=== PATIENT | male | born 1990 | race Caucasian/White ===

== ENCOUNTER 2020-01-13 18:44 | Emergency (ER) | payer MEDICAID, SELFPAY ==
[2020-01-13 19:10] VITALS: BP 136/87; PULSE 66; RESP 20; TEMP 36.7; O2SAT 99; BMI 32.4
[2020-01-13 19:17] LABS: UTC Strep Screen (Rapid) Negative (Negative)
--- NOTE | 2020-01-13 19:28 | HMH.EDUTC ---
[facility] [place] Clinical Impression: URI (upper respiratory infection) Qualifiers: URI type: unspecified URI Qualified Code(s): J06.9 - Acute upper respiratory infection, unspecified Disposition: Home, Self-Care Condition on Discharge: Good Instructions: Sore Throat, DI for Sinusitis, Sinusitis, Preventing the Spread of Coronavirus Discharge Instructions Additional Instructions: You was given handout to go home and self Quarantine until your [id number] test results are back and are negative Make sure to follow instructions on the handout *Take medication as prescribed Follow up with Family Doctor if no improvement or any worsening of symptoms Return if needed Straight to ER if any life threatening symptoms Call back to the [facility] on Mon to see if your COVID test is back and for the results No work until negative test Prescriptions: Albuterol Sulfate [Proventil-HFA 90mcg/puff Inh] 1 - 2 puffs IH Q4HP PRN #1 inh PRN Reason: Shortness Of Breath Transmission Status: Pending to [facility] Fluticasone Propionate [Flonase 50mcg nasal spray 16gm] 1 - 2 spr NS DAILY #1 bottle Transmission Status: Pending to [facility] Azithromycin [Z-Martin 250mg Tab] 250 mg PO DIRECTED #6 tab Transmission Status: Pending to [facility] Referrals: PCP,No [Primary Care Provider] - As needed Forms: Work/School Release Time of Disposition: 19:39 Medical Decision Making - Akbar Inquiry Pt receiving controlled substance: No Akbar was queried for this patient: No Vital Signs: 01/13/20 19:10 Temperature 98.1 F Temperature Source Oral Pulse Rate [Left Brachial] 66 Respiratory Rate 20 Blood Pressure [Left Arm] 136/87 Blood Pressure Mean [Left Arm] 103 Blood Pressure Source [Left Arm] Automatic Cuff Blood Pressure Position [Left Arm] Sitting 02 Sat by Pulse Oximetry 99 Oxygen Delivery Method Room Air - Lab Data Lab results reviewed: Yes: I reviewed the patient's lab results. Lab Results 01/13/20 19:06: Strep Scn Rapid Clinic Negative Orders (Tests/Meds): ORDERS Category Date Time Status SARS-CoV-2, JOSUE Stat Lab 01/13/20 19:10 Received Strep Screen Confirmation Stat Micro 01/13/20 19:06 Received [facility] [place]PI - General Stated complaint: cough,sore throat Time Seen by Provider: 01/13/20 19:28 Mode of Arrival: Ambulatory Source of Information: Patient Limitations: No Limitations Description of Symptoms (Recalled from Triage Doc. by RN): PATIENT C/O COUGH, SORE THROAT, AND PLEURITIC PAIN X 3 DAYS. STATES COUGH HAS BEEN BOTH PRODUCTIVE AND DRY. DENIES FEVER. STATES 2-3 PEOPLE WHO WORKS IN THE SAME FACILITY HAS TESTED POSITIVE FOR COVID HEENT Symptoms (Recalled from RN notes): Yes Resp Symptoms (Recalled from RN notes): Yes Skin Symptoms (Recalled from RN notes): No MS Symptoms (Recalled from RN notes): Yes Functional Status (Recalled from RN notes): WNL - History of Present Illness Provider Complaint: Patient states that he is an everyday smoker and has been having cough, sore throat, and headache for several days States that at times it hurts when he coughs States that at times he can cough up some mucous and at times it is dry Denies known fever, States that a few people at his work has tested positive for COVID but he hasnt been around them States that cough at times is worse when he lays down - Related Data Previous Rx's Medication Instructions Recorded Albuterol Sulfate [Proventil-HFA 1 - 2 puffs IH Q4HP PRN #1 inh 01/13/20 90mcg/puff Inh] Azithromycin [Z-Martin 250mg Tab] 250 mg PO DIRECTED #6 tab 01/13/20 Fluticasone Propionate [Flonase 1 - 2 spr NS DAILY #1 bottle 01/13/20 50mcg nasal spray 16gm] Allergies Allergy/AdvReac Type Severity Reaction Status Date / Time Penicillins [PENICILLINS] Allergy Unknown SWELLING Verified 09/18/18 17:40 THROAT - Worker's Comp Is this a Worker's Comp case?: No [facility] History - Hepatitis A Screen Drug us
[2020-01-13 19:42] VITALS: BP 136/87; PULSE 66; RESP 20; TEMP 36.7; O2SAT 99
[2020-01-15 15:13] LABS: Covid-19 Nasal PCR Sendout Lex NOT DETECTED
== END 2020-01-13 19:43 | disposition home or self-care (01) ==
PROVIDERS: Emergency Provider Nurse Practitioner
DX: Z20.828 Contact with and (suspected) exposure to other viral communicable diseases (principal); J06.9 Acute upper respiratory infection, unspecified; F17.210 Nicotine dependence, cigarettes, uncomplicated
CPT/HCPCS: 87880; 99202; U0004

== ENCOUNTER → 2020-04-22 14:54 | Outpatient (CLI) | payer MEDICAID, SELFPAY ==
[2020-04-22 15:25] LABS: Eosinophils # 0.1 K/mm3 (0.0-0.4); Red Cell Distribution Width 12.9 % (11.5-17.5)
[2020-04-22 15:30] LABS: Basophils % 0.3 % (0.1-2.0); Eosinophils % 2.1 % (0.1-12.0); Hematocrit 54.6 % (42.0-52.0); Lymphocytes # 1.8 K/mm3 (0.7-4.5); Lymphocytes % 29.6 % (10-50); Mean Corpuscular HGB Conc 32.9 g/dL (31.8-35.4); Mean Corpuscular Hemoglobin 31.1 pg (27.0-31.2); Mean Corpuscular Volume 94.4 fl (80-94); Mean Platelet Volume 7.5 fl (7.4-10.4); Monocytes # 0.4 K/mm3 (0.1-1.0); Monocytes % 6.3 % (1.7-9.3); Neutrophils # 3.7 K/mm3 (1.8-7.8); Neutrophils % 61.6 % (37.0-80.0); Platelet Count 300 K/mm3 (142-424); Red Blood Count 5.79 M/mm3 (4.60-6.20)
[2020-04-22 15:44] LABS: Hemoglobin A1C 5.6 % (4.0-6.0)
[2020-04-22 15:53] LABS: Alanine Aminotransferase 22 U/L (12-78); Albumin/Globulin Ratio 1.7 (1.1-1.8); Alkaline Phosphatase 103 U/L (38-126); Anion Gap 11.2 mEq/L (5-15); Aspartate Amino Transferase 25 U/L (17-59); Bilirubin,Total 0.5 mg/dl (0.2-1.3); Blood Urea Nitrogen 5 mg/dl (9-20); Calcium 9.5 mg/dl (8.4-10.2); Carbon Dioxide 30 mmol/L (22.0-30.0); Chloride 105 mmol/L (98-107); Chol/HDL Ratio 4.5 (1-3.5); Cholesterol 153 mg/dl (140-200); Estimated Glomerular Filt Rate 112 ml/min (>60); GFR (African American) 136 ML/MIN (>60); Globulin 2.4 g/dL (1.3-3.2); Glucose 83 mg/dl (74-100); HDL Cholesterol 34 mg/dl (40-60); Potassium 5.2 mmoL/L (3.5-5.1); Sodium 141 mmol/L (136-145); Total Protein,Serum 6.4 g/dl (6.3-8.2); Triglycerides 127 mg/dl (30-150); VLDL Cholesterol 25 mg/dL (0-40)
[2020-04-22 16:04] LABS: Direct LDL Cholesterol 97.07 mg/dL (100-129)
[2020-04-22 16:10] LABS: T4 (Thyroxine) 8.9 ug/dl (5.53-11.0)
== END ==
PROVIDERS: Visit Provider Nurse Practitioner Family
DX: R42 Dizziness and giddiness (principal); R05 Cough; R53.83 Other fatigue; Z76.89 Persons encountering health services in other specified circumstances
CPT/HCPCS: 80053; 80061; 83036; 84436; 84443; 85025

== ENCOUNTER → 2020-04-29 18:14 | Outpatient (CLI) | payer MEDICAID, SELFPAY ==
[2020-04-29 19:50] LABS: Anion Gap 11.5 mEq/L (5-15); Blood Urea Nitrogen 5 mg/dl (9-20); Calcium 9.3 mg/dl (8.4-10.2); Carbon Dioxide 30 mmol/L (22.0-30.0); Chloride 103 mmol/L (98-107); Estimated Glomerular Filt Rate 112 ml/min (>60); GFR (African American) 136 ML/MIN (>60); Glucose 85 mg/dl (74-100); Potassium 4.5 mmoL/L (3.5-5.1); Sodium 140 mmol/L (136-145)
== END ==
PROVIDERS: Visit Provider Nurse Practitioner Family
DX: E87.5 Hyperkalemia (principal)
CPT/HCPCS: 80048

== ENCOUNTER 2020-06-01 20:46 | Emergency (ER) | payer SELFPAY ==
[2020-06-01 21:15] VITALS: BP 142/91; PULSE 86; RESP 19; TEMP 36.8; O2SAT 100; BMI 32.1
[2020-06-01 21:21] VITALS: BP 154/80; PULSE 75; RESP 19; TEMP 36.8; O2SAT 99
--- NOTE | 2020-06-01 21:21 | HMH.EDUTC ---
[facility] [place] Disposition Clinical Impression: Otitis media Qualifiers: Otitis media type: unspecified Laterality: right Qualified Code(s): H66.91 - Otitis media, unspecified, right ear Disposition: Home, Self-Care Condition on Discharge: Good Instructions: Middle Ear Infection, Middle Ear Infections (Alternative Therapy), Azithromycin, Sore Throat Additional Instructions: *Monitor Temp, Over the counter Motrin or Tylenol as directed/as needed Tylenol every 4 hours and Motrin every 6 hours (as long as your family doctor has told you that you can take it) for fever or pain. and straight to ER if unable to lower temp less than 101.0 after medication given *Warm salt water gargles may help to soothe the throat *Throat Lozenges *Warm fluids like tea with honey may help to soothe the throat *Sleep elevated *Humidifier/Vaporizer Your throat swab was sent for culture. Those results are typically sent to your primary care. Be sure to follow up in 2-3 days with your family doctor/primary care physician if no improvement so they can review those result and treat if necessary. If you don?t have a primary care doctor, I recommend you get one but in the mean time, you will have to return to a walk in clinic Follow up IMMEDIATELY for new or worsening symptoms or no Noticeable improvement over the next 48-72 hours. 911 for difficulty breathing or swallowing You were tested for today for COVID19 your test result should be back in the next 24-48 hours, you may call to the [facility] to see if your test results are back in the next 48 hours [phone] [facility] hours are 9am-9pm You was given a handout with instructions for Self Quarantine and Self isolation for while you wait on test results and what to do if they are positive If you are positive the Health Dept will be contacting you also Prescriptions: Azithromycin [Z-Martin 250mg Tab] 250 mg PO DIRECTED #6 tab Transmission Status: Pending to [facility] Referrals: Joey Patel APRN [Primary Care Provider] - As needed Forms: Work/School Release Time of Disposition: 21:26 Medical Decision Making - Akbar Inquiry Pt receiving controlled substance: No Akbar was queried for this patient: No Vital Signs: 06/01/20 21:15 Temperature 98.3 F Temperature Source Oral Pulse Rate [Left] 86 Respiratory Rate 19 Blood Pressure [Right Arm] 142/91 H Blood Pressure Mean [Right Arm] 108 Blood Pressure Source [Right Arm] Automatic Cuff Blood Pressure Position [Right Arm] Sitting 02 Sat by Pulse Oximetry 100 Oxygen Delivery Method Room Air - Lab Data Lab results reviewed: Yes: I reviewed the patient's lab results. Orders (Tests/Meds): ORDERS Category Date Time Status Covid-19 Nasal PCR Sendout Charlie Stat Lab 06/01/20 21:08 Received [facility] [place] HPI - General Stated complaint: FEVER,COUGH Time Seen by Provider: 06/01/20 21:21 Mode of Arrival: Ambulatory Source of Information: Patient Limitations: No Limitations Description of Symptoms (Recalled from Triage Doc. by RN): Covid test- exposed fatigue, cough, headache HEENT Symptoms (Recalled from RN notes): Yes Resp Symptoms (Recalled from RN notes): Yes Skin Symptoms (Recalled from RN notes): No MS Symptoms (Recalled from RN notes): No Functional Status (Recalled from RN notes): wnl - History of Present Illness Provider Complaint: Patient states that he was around someone several weeks ago that tested postive for COVID State that he hasnt felt well on and off for several days having ear pain, sore throat, body aches and fatigue States that he wasnt sure if he may have COVID or have strep throat - Related Data Previous Rx's Medication Instructions Recorded cephalexin 500 mg capsule 500 mg PO Q12H 10 Days #20 cap 04/22/20 Azithromycin [Z-Martin 250mg Tab] 250 mg PO DIRECTED #6 tab 06/01/20 Allergies Allergy/AdvReac Type Severity Reaction Status Date / Time Penicillins [PENICILLINS] Allergy Unknown SWELLING Verified 03/27
[2020-06-01 21:26] LABS: UTC Strep Screen (Rapid) Negative (Negative)
[2020-06-03 14:20] LABS: Covid-19 Nasal PCR Sendout Lex Not Detected
== END 2020-06-01 21:29 | disposition home or self-care (01) ==
PROVIDERS: Emergency Provider Nurse Practitioner; PCP Nurse Practitioner Family
DX: Z20.828 Contact with and (suspected) exposure to other viral communicable diseases (principal); H66.91 Otitis media, unspecified, right ear
CPT/HCPCS: 87880; 99201; U0004

== ENCOUNTER 2020-10-15 20:07 | Emergency (ER) | payer SELFPAY ==
[2020-10-15 20:07] VITALS: BP 144/81; PULSE 74; RESP 18; TEMP 36.8; O2SAT 97; BMI 30.8
--- NOTE | 2020-10-15 20:12 | XR_ITS ---
PROCEDURE: XR SHOULDER RT MIN 2V CLINICAL INDICATION: FELT POP WHILE PUTTING IN A CAR SEAT COMPARISON: CR SHOULDCMLT XR shoulder LT min 2V from 10/14/2018 FINDINGS: No fracture or dislocation. No lytic or blastic change. There is normal mineralization. The joint spaces are well-preserved. No significant degenerative/arthritic changes. No erosive changes evident. Other findings:None. IMPRESSION: No acute findings. Dictated by: Jameson Cabrera MD 10/16/2020 06:03 Jameson Cabrera MD in [place] 10/16/2020 06:03
--- NOTE | 2020-10-15 20:35 | HMH.EDUTC ---
[facility] [place]ression: Right shoulder strain Qualifiers: Encounter type: initial encounter Qualified Code(s): S46.911A - Strain of unspecified muscle, fascia and tendon at shoulder and upper arm level, right arm, initial encounter Disposition: Home, Self-Care Condition on Discharge: Good Instructions: DI for Shoulder Pain, Muscle Strain, Methocarbamol, Ibuprofen Additional Instructions: *Ibuprofen faheem 6 hours with meal as needed for pain/inflammation *Not additional anti-inflammatory like motrin, aleve, advil with the above amount of ibuprofen. You can still take Tylenol every 4 hours as needed if you need something else for pain *Ice 20 minutes every 2 hours for the first 48 hours after the initial injury followed by moist heat every 20 minutes 3-4 times a day to affected area *Muscle relaxer as prescribed as needed for muscle spasms but remember, it WILL cause drowsiness You cannot take it and drive, operate machinery or care for small children. *Keep this area active, no movement leads to more stiffness, However take it easy and avoid heavy lifting pushing or pulling *Follow up with you family doctor if no improvement for further treatment Call back tomorrow to the [facility] for the official reading of your xray Prescriptions: Ibuprofen [Ibuprofen 800mg Tablet] 800 mg PO Q8HP PRN #20 tab PRN Reason: Moderate Pain Transmission Status: [facility] methocarbamoL [Methocarbamol 500mg Tablet] 500 mg PO BID PRN #15 tab PRN Reason: Muscle Spasm Transmission Status: [facility] Referrals: Jonah Sanchez MD [Primary Care Provider] - As needed Forms: Work/School Release Time of Disposition: 21:11 Medical Decision Making - Akbar Inquiry Pt receiving controlled substance: No Akbar was queried for this patient: No Vital Signs: 10/15/20 20:07 Temperature 98.3 F Temperature Source Oral Pulse Rate [Right] 74 Respiratory Rate 18 Blood Pressure [Right Arm] 144/81 H Blood Pressure Mean [Right Arm] 102 02 Sat by Pulse Oximetry 97 Orders (Tests/Meds): ORDERS Category Date Time Status XR shoulder RT min 2V Stat Exams 10/15/20 20:12 Ordered - Radiology Data #1 Image(s): Shoulder Image Reviewed: Yes I reviewed the patient's radiology image Preliminary Findings: No Fracture Seen Medical Decision Narrative: Patient state that he took Ibuprofen around 6pm for pain [facility] [place] - General Stated complaint: R shoulder pain Time Seen by Provider: 10/15/20 20:35 Mode of Arrival: Family Vehicle Source of Information: Patient Limitations: No Limitations Description of Symptoms (Recalled from Triage Doc. by RN): PATIENT C/O RIGHT SHOULDER PAIN AFTER PULLING ON A SEAT BELT. PT STATED, I FELT MY SHOULDER POP AND IT STARTED BURNING. PT HAS DECREASED ROM UPON ASSESSMENT. HEENT Symptoms (Recalled from RN notes): No Resp Symptoms (Recalled from RN notes): No Skin Symptoms (Recalled from RN notes): No MS Symptoms (Recalled from RN notes): Yes Functional Status (Recalled from RN notes): NA - History of Present Illness Provider Complaint: Patient states that he was pulling on seat belt and felt a pop in his right shoulder area State that ever since he has been having a burning like pain in his muscle in his right shoulder area States that pain is worse when he tries to raise his arm States that he is able to move fingers easily and denies numbness or tingling - Related Data Previous Rx's Medication Instructions Recorded cephalexin 500 mg capsule 500 mg PO Q12H 10 Days #20 cap 04/22/20 Azithromycin [Z-Martin 250mg Tab] 250 mg PO DIRECTED #6 tab 06/01/20 Ibuprofen [Ibuprofen 800mg 800 mg PO Q8HP PRN #20 tab 10/15/20 Tablet] methocarbamoL [Methocarbamol 500mg 500 mg PO BID PRN #15 tab 10/15/20 Tablet] Allergies Allergy/AdvReac Type Severity Reaction Status Date / Time Penicillins [PENICILLINS] Allergy Unknown SWELLING Verified 04/22/20 10:
[2020-10-15 21:16] VITALS: BP 134/71; PULSE 71; RESP 16; TEMP 36.8; O2SAT 99
== END 2020-10-15 21:15 | disposition home or self-care (01) ==
PROVIDERS: Emergency Provider Nurse Practitioner; PCP Emergency Medicine
DX: S46.911A Strain of unspecified muscle, fascia and tendon at shoulder and upper arm level, right arm, initial encounter (principal); X50.0XXA Overexertion from strenuous movement or load, initial encounter; G43.709 Chronic migraine without aura, not intractable, without status migrainosus; F17.290 Nicotine dependence, other tobacco product, uncomplicated
CPT/HCPCS: 73030; 99202; G0463

== ENCOUNTER 2020-12-15 19:02 | Emergency (ER) | payer SELFPAY ==
[2020-12-15 19:05] VITALS: BP 148/84; PULSE 76; RESP 19; TEMP 37.2; O2SAT 98; BMI 39.4
[2020-12-15 19:43] VITALS: BP 148/84; PULSE 76; RESP 19; TEMP 37.2; O2SAT 98
[2020-12-15 19:44] LABS: UTC Influenza A Antigen Negative (Negative); UTC Influenza B Antigen Negative (Negative)
--- NOTE | 2020-12-15 19:47 | HMH.EDUTC ---
[facility] [place] Clinical Impression: Otitis media Qualifiers: Otitis media type: unspecified Laterality: left Qualified Code(s): H66.92 - Otitis media, unspecified, left ear Disposition: Home, Self-Care Condition on Discharge: Good Instructions: Sore Throat, DI for Fever (Symptom) -- Adult, Middle Ear Infection, Azithromycin Additional Instructions: *Monitor Temp, Over the counter Motrin or Tylenol as directed/as needed Tylenol every 4 hours and Motrin every 6 hours (as long as your family doctor has told you that you can take it) for fever or pain. and straight to ER if unable to lower temp less than 101.0 after medication given *Warm salt water gargles may help to soothe the throat *Throat Lozenges *Warm fluids like tea with honey may help to soothe the throat *Sleep elevated *Humidifier/Vaporizer Your throat swab was sent for culture. Those results are typically sent to your primary care. Be sure to follow up in 2-3 days with your family doctor/primary care physician if no improvement so they can review those result and treat if necessary. If you don?t have a primary care doctor, I recommend you get one but in the mean time, you will have to return to a walk in clinic Follow up IMMEDIATELY for new or worsening symptoms or no Noticeable improvement over the next 48-72 hours. 911 for difficulty breathing or swallowing You were tested for today for COVID19 your test result should be back in the next 24-48 hours, you may call to the [facility] to see if your test results are back in the next 48 hours [phone] [facility] hours are 9am-9pm You was given a handout with instructions for Self Quarantine and Self isolation for while you wait on test results and what to do if they are positive If you are positive the Health Dept will be contacting you also Prescriptions: Azithromycin [Z-Martin 250mg Tab] 250 mg PO DIRECTED #6 tab Transmission Status: Pending to [facility] Referrals: Jonah Sanchez MD [Primary Care Provider] - As needed Forms: Work/School Release Time of Disposition: 19:53 Medical Decision Making - Akbar Inquiry Pt receiving controlled substance: No Akbar was queried for this patient: No Vital Signs: 12/15/20 19:05 12/15/20 19:43 Temperature 99.0 F 99.0 F Temperature Source Oral Pulse Rate 76 Pulse Rate [Right Brachial] 76 Respiratory Rate 19 19 Blood Pressure 148/84 H Blood Pressure [Right Arm] 148/84 H Blood Pressure Mean [Right Arm] 105 Blood Pressure Source [Right Arm] Automatic Cuff Blood Pressure Position [Right Arm] Sitting 02 Sat by Pulse Oximetry 98 Oxygen Delivery Method Room Air - Lab Data Lab results reviewed: Yes: I reviewed the patient's lab results. Lab Results 12/15/20 19:28: Influenza Type A Ag Negative, Influenza Type B Ag Negative Orders (Tests/Meds): ORDERS Category Date Time Status Covid-19 Nasal PCR ([facility]) Routine Lab 12/15/20 19:34 Received [facility] [place] - General Stated complaint: sore throat,cough, body pain Time Seen by Provider: 12/15/20 19:49 Mode of Arrival: Ambulatory Source of Information: Patient Limitations: No Limitations Description of Symptoms (Recalled from Triage Doc. by RN): PATIENT C/O FEVER, BODY ACHES, CHILLS, CONGESTION, SORE THROAT AND HEADACHE X 3 DAYS HEENT Symptoms (Recalled from RN notes): Yes Resp Symptoms (Recalled from RN notes): No Skin Symptoms (Recalled from RN notes): No MS Symptoms (Recalled from RN notes): No Functional Status (Recalled from RN notes): WNL - History of Present Illness Provider Complaint: Patient states that he has not felt well for several days State that he has been having pain in his left ear, sore throat, body aches, chills headache nasal congestion and fever States that today he was feeling worse so he came in to get checked - Related Data Previous Rx's Medication Instructions Recorded Azithromycin [Z-Martin 250mg Tab] 250 mg PO DIRECTED #6 tab 12/15/20 Allerg
[2020-12-15 21:12] LABS: UTC Strep Screen (Rapid) Negative (Negative)
== END 2020-12-15 19:59 | disposition home or self-care (01) ==
PROVIDERS: Emergency Provider Nurse Practitioner; PCP Emergency Medicine
DX: H66.92 Otitis media, unspecified, left ear (principal)
CPT/HCPCS: 87804; 87880; 99202; G0463; U0003

== ENCOUNTER 2021-01-31 19:38 | Emergency (ER) | payer SELFPAY ==
[2021-01-31 20:30] VITALS: BP 133/89; PULSE 80; RESP 21; TEMP 36.8; O2SAT 98; BMI 32.1
--- NOTE | 2021-01-31 21:01 | HMH.EDUTC ---
[facility] [place] Clinical Impression: Muscle spasm Disposition: Home, Self-Care Condition on Discharge: Good Instructions: DI for Muscle Spasm Additional Instructions: rest Ice with cold pack for 20 minutes remove may repeat for comfort every hour Ibuprofen every 6 hours as needed for pain or inflammation. If needs something more you can take Tylenol every 4 hours as needed as long as her primary care has told he was okayed for you to take both. If improving any do not need to follow-up you can bring begin exercising 2-3 weeks after injury. Follow-up immediately if new or worsening symptoms or no noticeable improvement over the next 3-5 days. call pcp Referrals: Jonah Sanchez MD [Primary Care Provider] - Time of Disposition: 21:09 Medical Decision Making - Akbar Inquiry Pt receiving controlled substance: No [facility] [place] HPI - General Chief complaint: Urgent [facility] Stated complaint: possible pulled shoulder muscle Time Seen by Provider: 01/31/21 21:01 Mode of Arrival: Ambulatory Source of Information: Patient Limitations: No Limitations - History of Present Illness Provider Complaint: 31 yr old male presnets for left shoulder pain. pt states no injury just woke up with stiffness 3 days ago and becoming worse - Related Data Previous Rx's Medication Instructions Recorded Azithromycin [Z-Martin 250mg Tab] 250 mg PO DIRECTED #6 tab 12/15/20 Allergies Allergy/AdvReac Type Severity Reaction Status Date / Time Penicillins [PENICILLINS] Allergy Unknown SWELLING Verified 04/22/20 10:43 THROAT [facility] History - Hepatitis A Screen Attestation statement:: This patient has been screened for Hepatitis A risk factors. I have reviewed the patient's past medical history: Yes 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: Reports:: Migraine Denies:: Diabetes Mellitus Type 1, Diabetes Mellitus Type 2, Hypertension Other Surgeries: Yes: Cholecystectomy, Other (cholecystectomy) - Social History Smoking Status: Current every day smoker Tobacco Type: cigarettes # Packs/Day (cigarettes): 1 Alcohol Intake: never Alcohol Intake Frequency:: 3 or more drinks per day Occupational Status: other Housing: house Household Members: significant other ROS Obtained: Yes Systems reviewed as appropriate & no additional complaints - Constitutional Constitutional: Reports system reviewed and no additional complaints, except as docu, Denies fever(s) - Eyes Eyes: Reports system reviewed and no additional complaints, except as docu, Denies blurry vision - ENT Ears, Nose, Mouth, and Throat: Reports system reviewed and no additional complaints, except as docu, Denies sore throat - Cardiovascular Cardiovascular: Reports system reviewed and no additional complaints, except as docu, Denies chest pain - Respiratory Respiratory: Reports system reviewed and no additional complaints, except as docu, Denies change in phlegm color - Gastrointestinal Gastrointestingal: Reports: system reviewed and no additional complaints, except as docu. Denies: belching - Genitourinary Female Genitourinary: Reports system reviewed and no additional complaints, except as docu, Denies urinary hesitancy - Musculoskeletal Musculoskeletal: Reports system reviewed and no additional complaints, except as docu, Reports as per HPI, Reports joint pain, Reports limited range of motion - Integumentary/Breasts Skin/Breast: Reports system reviewed and no additional complaints, except as docu, Denies rash - Neurologic Neurologic: Reports system reviewed and no additional complaints, except as docu, Denies dizziness - Endocrine Endocrine: Reports system reviewed and no additional complaints, except as docu, Denies fatigue - Hematologic/Lymphatic Henatologic/Lymphatic: Reports system reviewed and no additional complaints, except as docu, Denies lymphadenopathy - Allergic/Immunologic Allergic/Immunologic: Reports system reviewed and no additional complaints, except a
[2021-01-31 21:12] VITALS: BP 133/89; PULSE 80; RESP 21; TEMP 36.8; O2SAT 98
== END 2021-01-31 21:15 | disposition home or self-care (01) ==
PROVIDERS: Emergency Provider Nurse Practitioner Family; PCP Emergency Medicine
DX: M62.838 Other muscle spasm (principal); M25.511 Pain in right shoulder; F17.210 Nicotine dependence, cigarettes, uncomplicated
CPT/HCPCS: 96372; 99202; G0463

== ENCOUNTER 2021-02-13 12:22 | Emergency (ER) | payer OTHER, SELFPAY ==
[2021-02-13 12:30] VITALS: BP 147/96; PULSE 112; RESP 22; TEMP 39.2; O2SAT 98; BMI 35.9
--- NOTE | 2021-02-13 13:00 | HMH.EDUTC ---
[facility] [place] Disposition Clinical Impression: Viral syndrome, Encounter for laboratory testing for COVID-19 virus Disposition: Home, Self-Care Condition on Discharge: Good Instructions: DI for COVID-19 (Suspected or Confirmed ), Coronavirus Disease 2019, Preventing the Spread of Coronavirus Discharge Instructions Additional Instructions: *Monitor Temp, Over the counter Motrin or Tylenol as directed/as needed Tylenol every 4 hours and Motrin every 6 hours (as long as your family doctor has told you that you can take it) for fever or pain. and straight to ER if unable to lower temp less than 101.0 after medication given *Warm salt water gargles may help to soothe the throat *Throat Lozenges *Warm fluids like tea with honey may help to soothe the throat *Sleep elevated *Humidifier/Vaporizer Follow up IMMEDIATELY for new or worsening symptoms or no Noticeable improvement over the next 48-72 hours. 911 for difficulty breathing or swallowing Robitussin may help with cough You were tested for today for COVID19 your test result should be back in the next 24-48 hours, you may call to the [facility] to see if your test results are back in the next 48 hours [phone] [facility] hours are 9am-9pm You was given a handout with instructions for Self Quarantine and Self isolation for while you wait on test results and what to do if they are positive If you are positive the Health Dept will be contacting you also Make sure to take your Vitamins Vit. C Vit D and Zinc if you can take them Referrals: Jonah Sanchez MD [Primary Care Provider] - As needed Forms: Work/School Release Time of Disposition: 13:46 Medical Decision Making - Akbar Inquiry Pt receiving controlled substance: No Akbar was queried for this patient: No Vital Signs: 02/13/21 12:30 Temperature 102.6 F H Temperature Source Oral Pulse Rate [Right Brachial] 112 H Respiratory Rate 22 Blood Pressure [Right Arm] 147/96 H Blood Pressure Mean [Right Arm] 113 Blood Pressure Source [Right Arm] Automatic Cuff Blood Pressure Position [Right Arm] Sitting 02 Sat by Pulse Oximetry 98 Oxygen Delivery Method Room Air Orders (Tests/Meds): ED MEDICATIONS Discontinued Medications Generic Name Dose Route Start Last Admin Trade Name Freq PRN Reason Stop Dose Admin Acetaminophen 650 mg 02/13/21 13:02 02/13/21 13:10 Acetaminophen 325mg Tab PO 02/13/21 13:03 650 mg ONCE ONE Administration Ibuprofen 800 mg 02/13/21 13:02 02/13/21 13:06 Ibuprofen 200mg/10ml Susp Udc PO 02/13/21 13:03 Not Given ONCE ONE Ibuprofen 800 mg 02/13/21 13:05 02/13/21 13:10 Ibuprofen 400 Mg Tablet PO 02/13/21 13:06 800 mg ONCE ONE Administration ORDERS Category Date Time Status Covid-19 Nasal PCR ([facility]) Routine Lab 02/13/21 12:36 Received [facility] [place] HPI - General Stated complaint: covid test Time Seen by Provider: 02/13/21 13:00 Mode of Arrival: Ambulatory Source of Information: Patient Limitations: No Limitations Description of Symptoms (Recalled from Triage Doc. by RN): PATIENT C/O FEVER, HEADACHE, CONGESTION, RUNNY NOSE, COUGH AND FATIGUE HEENT Symptoms (Recalled from RN notes): Yes Resp Symptoms (Recalled from RN notes): Yes Skin Symptoms (Recalled from RN notes): No MS Symptoms (Recalled from RN notes): No Functional Status (Recalled from RN notes): WNL - History of Present Illness Provider Complaint: Patient states that he was fine yesterday when he laid down State that he woke up this morning having flu like symptoms States that he has been having body aches, fever, chills and nasal congestion with cough on and off State that as the day went on he continued to feel worse so he came in to get checked for COVID states that there is several people at work that has tested positive for COVID and thinks he may have it now too - Related Data Previous Rx's Medication Instructions Recorded cyclobenzaprine 10 mg tablet 10 mg PO TID PRN #60 tab 02/11/21 prednisone 2
[2021-02-13 13:44] VITALS: TEMP 38.4
[2021-02-13 13:45] VITALS: BP 147/96; PULSE 112; RESP 22; TEMP 38.4; O2SAT 98
--- NOTE | 2021-02-13 21:22 | PC.NURSE ---
PT NOTIFIED OF POSITIVE COVID TEST RESULTS
== END 2021-02-13 13:50 | disposition home or self-care (01) ==
PROVIDERS: Emergency Provider Nurse Practitioner; PCP Emergency Medicine
DX: B34.9 Viral infection, unspecified (principal); Z20.822 Contact with and (suspected) exposure to COVID-19
CPT/HCPCS: 99203; G0463; U0003

== ENCOUNTER 2021-02-19 12:44 | Emergency (ER) | payer OTHER, SELFPAY ==
[2021-02-19 13:50] VITALS: BP 133/87; PULSE 85; RESP 18; TEMP 37; O2SAT 98; BMI 38.0
--- NOTE | 2021-02-19 14:36 | HMH.EDUTC ---
[facility] [place] Disposition Clinical Impression: COVID-19 Disposition: Home, Self-Care Condition on Discharge: Good Instructions: DI for COVID-19 (Suspected or Confirmed ), Preventing the Spread of Coronavirus Discharge Instructions Additional Instructions: Drink plenty of fluids. Take tylenol for pain or fever. Return if you begin to have difficulty breathing. Follow up with your regular doctor. GO TO THE ER FOR ANY WORSENING SYMPTOMS Quarantine until you know the results of your covid-19 test. If it is positive, the health department should call you and give you further instructions about your length of Quarantine and other things. Notify your school or workplace of your results and follow their instructions regarding return to work/school. Referrals: Jonah Sanchez MD [Primary Care Provider] - Time of Disposition: 14:38 Medical Decision Making - Medical Records Medical records reviewed: No: I reviewed the patient's medical records. - Akbar Inquiry Pt receiving controlled substance: No Vital Signs: 02/19/21 13:50 02/19/21 14:39 Temperature 98.6 F 98.6 F Temperature Source Oral Pulse Rate 85 Pulse Rate [Right Brachial] 85 Respiratory Rate 18 18 Blood Pressure 133/87 Blood Pressure [Right Arm] 133/87 Blood Pressure Mean [Right Arm] 102 Blood Pressure Source [Right Arm] Automatic Cuff Blood Pressure Position [Right Arm] Sitting 02 Sat by Pulse Oximetry 98 Oxygen Delivery Method Room Air [facility] [place] HPI - General Stated complaint: covid test Time Seen by Provider: 02/19/21 14:36 Mode of Arrival: Ambulatory Source of Information: Patient Limitations: No Limitations Description of Symptoms (Recalled from Triage Doc. by RN): PATIENT NEEDING COVID TEST FOR WORK. TESTED POSITIVE FOR COVID ON MONDAY HEENT Symptoms (Recalled from RN notes): No Resp Symptoms (Recalled from RN notes): No Skin Symptoms (Recalled from RN notes): No MS Symptoms (Recalled from RN notes): No Functional Status (Recalled from RN notes): WNL - History of Present Illness Provider Complaint: He is here to have a covid test to see about going back to work. His employer wants him to have a negative test before returning. He was diagnosed with covid-19 around 12 days ago. He was sick for a few days, but he has been completely better for the past several days. He denies any fever/chills/cough or other symptoms now. - Related Data Previous Rx's Medication Instructions Recorded cyclobenzaprine 10 mg tablet 10 mg PO TID PRN #60 tab 02/11/21 prednisone 20 mg tablet 20 mg PO BID 5 Days #10 tab 02/11/21 Allergies Allergy/AdvReac Type Severity Reaction Status Date / Time Penicillins [PENICILLINS] Allergy Unknown SWELLING Verified 02/11/21 16:16 THROAT - Worker's Comp Is this a Worker's Comp case?: No [facility] History - Hepatitis A Screen Drug use history?: No High risk sexual behaviors?: No History of sexually transmitted infection?: No Currently employed?: No Childcare worker?: No Do you have indoor plumbing?: Yes Do you have electricity?: Yes Attestation statement:: This patient has been screened for Hepatitis A risk factors. I have reviewed the patient's past medical history: Yes 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: Reports:: Migraine Denies:: Diabetes Mellitus Type 1, Diabetes Mellitus Type 2, Hypertension Other Surgeries: Yes: Cholecystectomy, Other - Social History Smoking Status: Current every day smoker Tobacco Type: cigarettes # Packs/Day (cigarettes): 1 Alcohol Intake: never Alcohol Intake Frequency:: 3 or more drinks per day Occupational Status: other Housing: house Household Members: significant other ROS Obtained: Yes All systems reviewed & no additional complaints - Constitutional Constitutional: Reports system reviewed and no additional complaints, except as docu - Eyes Eyes: Reports system reviewed and no additional complaints, except as docu - ENT Ears, Nose, Mouth, and Throat: Reports
[2021-02-19 14:39] VITALS: BP 133/87; PULSE 85; RESP 18; TEMP 37; O2SAT 98
--- NOTE | 2021-02-20 11:25 | PC.NURSE ---
Attempted to call pt to inform of positive covid results, but no answer. Left a voicemail requesting a return call.
--- NOTE | 2021-02-20 11:36 | PC.NURSE ---
let patient know he was positive for covid
== END 2021-02-19 14:42 | disposition home or self-care (01) ==
PROVIDERS: Emergency Provider Nurse Practitioner Family; PCP Emergency Medicine
DX: U07.1 COVID-19 (principal); G43.709 Chronic migraine without aura, not intractable, without status migrainosus; Z88.0 Allergy status to penicillin
CPT/HCPCS: 99202; G0463; U0003

== ENCOUNTER 2021-07-22 18:45 | Emergency (ER) | payer SELFPAY ==
[2021-07-22 19:30] VITALS: BP 159/87; PULSE 84; RESP 18; TEMP 37.1; O2SAT 98; BMI 32.1
[2021-07-22 19:48] LABS: UTC Strep Screen (Rapid) Negative (Negative)
--- NOTE | 2021-07-22 19:57 | HMH.EDUTC ---
[facility] [place] Impression: Exposure to COVID-19 virus Disposition: Home, Self-Care Condition on Discharge: Good Instructions: DI for COVID-19 (Suspected or Confirmed ), Preventing the Spread of Coronavirus Discharge Instructions Additional Instructions: *Monitor Temp, Over the counter Motrin or Tylenol as directed/as needed Tylenol every 4 hours and Motrin every 6 hours (as long as your family doctor has told you that you can take it) for fever or pain. and straight to ER if unable to lower temp less than 101.0 after medication given *Warm salt water gargles may help to soothe the throat *Throat Lozenges *Warm fluids like tea with honey may help to soothe the throat *Sleep elevated *Humidifier/Vaporizer Your throat swab was sent for culture. Those results are typically sent to your primary care. Be sure to follow up in 2-3 days with your family doctor/primary care physician if no improvement so they can review those result and treat if necessary. If you don?t have a primary care doctor, I recommend you get one but in the mean time, you will have to return to a walk in clinic Follow up IMMEDIATELY for new or worsening symptoms or no Noticeable improvement over the next 48-72 hours. 911 for difficulty breathing or swallowing You were tested for today for COVID19 your test result should be back in the next 48-72 hours, you may check your results on the [facility] My health portal If you are positive someone from the Hospital will be calling you Make sure to drink plenty of water and gatoraid and take vitamin C, D and zinc Referrals: Jonah Sanchez MD [Primary Care Provider] - Forms: Work/School Release Time of Disposition: 20:04 Medical Decision Making - Akbar Inquiry Pt receiving controlled substance: No Akbar was queried for this patient: No Vital Signs: 07/22/21 19:30 Temperature 98.7 F Temperature Source Oral Pulse Rate [Right Brachial] 84 Respiratory Rate 18 Blood Pressure [Right Arm] 159/87 H Blood Pressure Mean [Right Arm] 111 Blood Pressure Source [Right Arm] Automatic Cuff Blood Pressure Position [Right Arm] Sitting 02 Sat by Pulse Oximetry 98 Oxygen Delivery Method Room Air - Lab Data Lab results reviewed: Yes: I reviewed the patient's lab results. Lab Results 07/22/21 19:35: Strep Scn Rapid Clinic Negative Orders (Tests/Meds): ORDERS Category Date Time Status Covid-19 Nasal PCR ([facility]) Routine Lab 07/22/21 19:30 Received Strep Screen Confirmation Stat Micro 07/22/21 19:[address] [facility] UTC HPI - General Stated complaint: MORALES,fever,sore throat Time Seen by Provider: 07/22/21 19:58 Mode of Arrival: Ambulatory Source of Information: Patient Limitations: No Limitations Description of Symptoms (Recalled from Triage Doc. by RN): PATIENT C/O FEVER, SORE THROAT, HEADACHE, AND BACK PAIN SINCE YESTERDAY HEENT Symptoms (Recalled from RN notes): Yes Resp Symptoms (Recalled from RN notes): No Skin Symptoms (Recalled from RN notes): No MS Symptoms (Recalled from RN notes): No Functional Status (Recalled from RN notes): WNL - History of Present Illness Provider Complaint: Patient states that he has been feeling achy all over having low grade fever, sore throat and headache State that several people at work is out right now with COVID and he has been around them State that he has a 1mth old at home and wanted to get tested to make sure that he didnt have strep or COVID - Related Data Allergies Allergy/AdvReac Type Severity Reaction Status Date / Time Penicillins [PENICILLINS] Allergy Unknown SWELLING Verified 02/11/21 16:16 THROAT - Worker's Comp Is this a Worker's Comp case?: No [facility] History - Hepatitis A Screen Drug use history?: No High risk sexual behaviors?: No History of sexually transmitted infection?: No Currently employed?: No Childcare worker?: No Do you have indoor plumbing?: Yes Do you have electricity?: Yes Attestation statement:: Thi
[2021-07-22 20:10] VITALS: BP 159/87; PULSE 84; RESP 18; TEMP 37.1; O2SAT 98
== END 2021-07-22 20:13 | disposition home or self-care (01) ==
PROVIDERS: Emergency Provider Nurse Practitioner; PCP Emergency Medicine
DX: U07.1 COVID-19 (principal)
CPT/HCPCS: 87880; 99203; C9803; G0463; U0003; U0005

== ENCOUNTER 2022-01-24 14:11 | Emergency (ER) | payer SELFPAY ==
[2022-01-24 14:30] VITALS: BP 145/76; PULSE 78; RESP 19; TEMP 36.6; O2SAT 97; BMI 30.8
--- NOTE | 2022-01-24 14:47 | HMH.EDUTC ---
[facility] [place] [facility] [place] Clinical Impression: Low back pain Qualifiers: Chronicity: unspecified Back pain laterality: right Sciatica presence: with sciatica Sciatica laterality: sciatica of right side Qualified Code(s): M54.41 - Lumbago with sciatica, right side Disposition: Home, Self-Care Condition on Discharge: Good Instructions: Low Back Pain, DI for Low Back Pain, DI for Sciatica Additional Instructions: *Ibuprofen faheem 6 hours with meal as needed for pain/inflammation *Remember you had a Toradol shot in the clinic today, which is similar to Motrin *Not additional anti-inflammatory like motrin, aleve, advil with the above amount of ibuprofen. You can still take Tylenol every 4 hours as needed if you need something else for pain *Ice 20 minutes every 2 hours for the first 48 hours after the initial injury followed by moist heat every 20 minutes 3-4 times a day to affected area *Muscle relaxer every 8 hours as needed for muscle spasms but remember, it WILL cause drowsiness You cannot take it and drive, operate machinery or care for small children. *Keep this area active, no movement leads to more stiffness, However take it easy and avoid heavy lifting pushing or pulling *Follow up with you family doctor if no improvement for further treatment Prescriptions: Cyclobenzaprine HCl [Flexeril 10mg tablet] 10 mg PO Q8HP PRN #30 tab PRN Reason: Muscle Spasm Transmission Status: Received by [id number] Ibuprofen [Ibuprofen 800mg Tablet] 800 mg PO Q8HP PRN #20 tab PRN Reason: Moderate Pain Transmission Status: Received by [id number] methylPREDNISolone [Medrol 4mg tab] 4 mg PO DIRECTED #21 tab Transmission Status: Received by [id number] Referrals: Provider,Referral, [Primary Care Provider] - As needed Forms: Work/School Release Medical Decision Making - Akbar Inquiry Pt receiving controlled substance: No Akbar was queried for this patient: No Vital Signs: 01/24/22 14:30 01/24/22 15:09 Temperature 97.8 F 97.8 F Temperature Source Oral Pulse Rate 78 Pulse Rate [Right Brachial] 78 Respiratory Rate 19 19 Blood Pressure 145/76 H Blood Pressure [Right Arm] 145/76 H Blood Pressure Mean [Right Arm] 99 Blood Pressure Source [Right Arm] Automatic Cuff Blood Pressure Position [Right Arm] Sitting 02 Sat by Pulse Oximetry 97 Oxygen Delivery Method Room Air Orders (Tests/Meds): ED MEDICATIONS Discontinued Medications Generic Name Dose Route Start Last Admin Trade Name Miguel A PRN Reason Stop Dose Admin Ketorolac Tromethamine 60 mg 01/24/22 14:49 01/24/22 15:00 Ketorolac 60mg/2ml Vial IM 01/24/22 14:50 60 mg ONCE ONE Administration Methylprednisolone Sodium Succinate 125 mg 01/24/22 14:49 01/24/22 15:00 Methylprednisolone Sod Succ 125mg Vial IM 01/24/22 14:50 125 mg ONCE ONE Administration [facility] [place] [facility] [place]PI - General Stated complaint: back pain Time Seen by Provider: 01/24/22 14:47 Mode of Arrival: Ambulatory Source of Information: Patient Limitations: No Limitations Description of Symptoms (Recalled from Triage Doc. by RN): PATIENT C/O BACK TO RIGHT LOWER BACK THAT RADIATES DOWN LEG SINCE YESTERDAY HEENT Symptoms (Recalled from RN notes): No Resp Symptoms (Recalled from RN notes): No Skin Symptoms (Recalled from RN notes): No MS Symptoms (Recalled from RN notes): No Functional Status (Recalled from RN notes): WNL - History of Present Illness Provider Complaint: Patient state that he bent over yesterday to help lift a transmission from his car when he felt a pull in his right lower back States that ever since he has been having achy like pain in his right lower back that radiates into buttock area and right upper leg worse with movement Denies loss of control of bowel or bladder - Related Data Previous Rx's Medication Instructions Recorded Cyclobenzaprine HCl [Flexeril 10mg 10 mg PO Q8HP PRN #30 tab 01/24/22 tablet] Ibuprofen [Ibupr
[2022-01-24 15:09] VITALS: BP 145/76; PULSE 78; RESP 19; TEMP 36.6; O2SAT 97
== END 2022-01-24 15:23 | disposition home or self-care (01) ==
PROVIDERS: Emergency Provider Nurse Practitioner
DX: M54.41 Lumbago with sciatica, right side (principal)
CPT/HCPCS: 96372; 99212; G0463

== ENCOUNTER 2022-10-12 17:56 | Emergency (ER) | payer SELFPAY ==
--- NOTE | 2022-10-12 18:27 | XR_ITS ---
PROCEDURE INFORMATION: Exam: XR Right Tibia and Fibula Exam date and time: 10/12/2022 6:34 PM Age: 32 years old Clinical indication: Injury or trauma; Fall; Blunt trauma; Lower leg; Right; Additional info: Fell off of ladder TECHNIQUE: Imaging protocol: Radiologic exam of the right tibia and fibula. Views: 2 views. COMPARISON: CR ANKCMRT XR ankle RT min 3V 24/03/2018 20:20 FINDINGS: Bones/joints: No acute fracture or dislocation. Soft tissues: Normal. IMPRESSION: No acute fracture or dislocation.
--- NOTE | 2022-10-12 18:42 | XR_ITS ---
PROCEDURE INFORMATION: Exam: XR Left Tibia and Fibula Exam date and time: 10/12/2022 6:36 PM Age: 32 years old Clinical indication: Injury or trauma; Fall; Blunt trauma; Lower leg; Left; Additional info: Fall off ladder TECHNIQUE: Imaging protocol: Radiologic exam of the left tibia and fibula. Views: 2 views. COMPARISON: No relevant prior studies available. FINDINGS: Bones/joints: No acute fracture or dislocation. Soft tissues: Normal. IMPRESSION: No acute fracture or dislocation.
[2022-10-12 18:45] VITALS: BP 151/89; PULSE 83; RESP 18; TEMP 36.9; O2SAT 100; BMI 33.7
--- NOTE | 2022-10-12 19:16 | EXP.UTC ---
Discharge Plan Disposition Patient Disposition: Home, Self-Care Condition: Good Prescriptions Prescriptions: No Action ibuprofen 800 mg tablet 800 mg PO Q8H Qty: 20 0RF methylprednisolone 4 mg tablets,dose pack See Rx Instructions PO PER PKG DIR Qty: 21 0RF Rx Instructions: PO PER PKG DIR Referrals Follow up/Referrals: Provider,Referral, [Primary Care Provider] - See instructions Activity Restrictions/Add. Instructions Additional Instructions/Restrictions: *weight bearing as tolerated *RICE, Rest the extremity, Ice 15-20 minutes 3-4 times daily, Compress- wear the onur wrap as discussed as much as possible to help reduce swelling and pain, Elevate the extremity when at rest *Elevate when resting? *Ibuprofen 600-800mg every 6-8 hours as needed for pain an inflammation. If need something more can take Tylenol in between doses of Ibuprofen to help Immediately follow up with your family doctor for new or worsening of symptoms, or no noticeable improvement over the next 3-5 days Suture instructions: ?You have required stitches today. Please read the following instructions so you know how to care for them: ?1. Keep wound area dry for the first 24 hours. 2?? May clean gently with mild soap and water, after 48 hours to prevent crusting over suture knots. 3. You may shower if your provider gives permission but do not take a bath until the skin is healed.. 4. Never leave a wet dressing or Band-Aid on your stitches as this allows bacteria to reach the area and may cause infection. Band-aids can cause the wound to sweat and not recommended to wear for long periods of time Watch for signs of infection: ? Increasing redness, tenderness or warmth around the suture site ? Unusual swelling around the site ? Appearance of pus around each suture or any red streaks ? Fever If you develop any of the above signs or symptoms of infection, Follow up with Family Physician immediately 5. Suture removal in _7-10___days 6. Return to [facility] or follow up with family doctor for removal. This can be done by any medical provider dur?ing regular hours on Monday through Monday, by appointment. Clinical Impressions Clinical Impression: Laceration Contusion Qualifiers: Encounter type: initial encounter Contusion area: lower leg Laterality: unspecified laterality Qualified Code(s): S80.10XA - Contusion of unspecified lower leg, initial encounter Instructions Patient Instructions: DI for Laceration Repair, Contusion, How To Perform RICE (Rest, Ice, Compress, Elevate) Discharge ED Provider: Allyson Kim [facility] [place] General Stated complaint: AO 07/14@1700 fell fr Ladder injured legs Mode of Arrival: Ambulatory Source of Information: Patient Limitations: No Limitations Time Seen by Provider: 10/12/22 19:16 Description of Symptoms (Recalled from Triage Doc. by RN): PATIENT STATES HE FELL OFF OF LADDER INJURED BILATERAL LEGS. HE REPORTS A KNOT ON RIGHT [place] AND SMALL CUT ON LEFT LEG HEENT Symptoms (Recalled from RN notes): No Resp Symptoms (Recalled from RN notes): No Skin Symptoms (Recalled from RN notes): Yes MS Symptoms (Recalled from RN notes): Yes Functional Status (Recalled from RN notes): WNL History of Present Illness Provider Complaint: Patient states that he was on a ladder and it slipped and he fell and hit both his lower legs on the steps of the ladder States that he has a knot on his right [place] area and one on his left with a small cut/abrasion States that he has been able to walk around ok but family wanted him to get them checked so he came in Denies any other injury Related Data Previous Rx's Medication Instructions Recorded ibuprofen 800 mg tablet 800 mg PO Q8H #20 tabs 07/04/22 methylprednisolone 4 mg tablets in See Rx Instructions PO PER PKG DIR 07/04/22 a dose pack #21 tabs Allergies Allergy/AdvReac Type Severity Reaction Status Date / Time Penicillins [PENICILLINS] Allergy Unknown SWELLING Verified 07/04/22 13
[2022-10-12 19:58] VITALS: BP 151/89; PULSE 83; RESP 18; TEMP 36.9; O2SAT 100
== END 2022-10-12 20:08 | disposition home or self-care (01) ==
PROVIDERS: Emergency Provider Nurse Practitioner
DX: S81.812A Laceration without foreign body, left lower leg, initial encounter (principal); F17.210 Nicotine dependence, cigarettes, uncomplicated; W11.XXXA Fall on and from ladder, initial encounter
CPT/HCPCS: 12001; 73590; 99213; G0463

== ENCOUNTER 2023-01-14 16:47 | Emergency (ER) | payer BC, SELFPAY ==
[2023-01-14 16:55] VITALS: BP 132/79; PULSE 88; RESP 22; TEMP 36.9; O2SAT 99; BMI 29.8
[2023-01-14 17:04] VITALS: BP 132/79; PULSE 88; RESP 22; TEMP 36.9; O2SAT 99
--- NOTE | 2023-01-14 17:07 | EXP.UTC ---
Discharge Plan Disposition Patient Disposition: Home, Self-Care Condition: Good Prescriptions Prescriptions: No Action No Known Home Medications Referrals Follow up/Referrals: Provider,Referral, MD [Primary Care Provider] - See instructions Activity Restrictions/Add. Instructions Additional Instructions/Restrictions: follow up with pcp return tomorrow for venous doppler if any new or worsening symptoms return or be seen in er Clinical Impressions Clinical Impression: Cellulitis Qualifiers: Site of cellulitis: extremity Site of cellulitis of extremity: lower extremity Laterality: right Qualified Code(s): L03.115 - Cellulitis of right lower limb Edema Qualifiers: Edema type: localized Qualified Code(s): R60.0 - Localized edema Instructions Patient Instructions: Cellulitis, Edema [facility] [place] General Stated complaint: left leg swollen Mode of Arrival: Ambulatory Source of Information: Patient Limitations: No Limitations Time Seen by Provider: 01/14/23 17:08 Description of Symptoms (Recalled from Triage Doc. by RN): PATIENT C/O SWELLING, REDNESS, AND TENDERNESS TO LEFT ANKLE SINCE MONDAY MORNING HEENT Symptoms (Recalled from RN notes): No Resp Symptoms (Recalled from RN notes): No Skin Symptoms (Recalled from RN notes): Yes MS Symptoms (Recalled from RN notes): No Functional Status (Recalled from RN notes): WNL History of Present Illness Provider Complaint: 32 yr old male presents for left leg pain and swelling. pt states for 3 days the pain and swelling has been present. pt states it started with a knot on the front of his leg then swelling started Related Data Home Medications Medication Instructions Recorded Confirmed No Known Home Medications 01/14/23 01/14/23 Allergies Allergy/AdvReac Type Severity Reaction Status Date / Time Penicillins [PENICILLINS] Allergy Unknown SWELLING Verified 07/04/22 13:43 THROAT Worker's Comp Is this a Worker's Comp case?: No [facility] Disclaimer: The information contained in this section may have been updated after the patient was seen, as this information can be updated by other users. 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) Smoking Status: Current every day smoker tobacco type: cigarettes packs per day: 1 second hand exposure: No alcohol intake: never current occupational status: other Travel in the last 8 weeks: None household members: significant other housing: house ROS Obtained: Yes All systems reviewed & no additional complaints except as documented Constitutional Constitutional: Reports system reviewed and no additional complaints, except as documented Eyes Eyes: Reports system reviewed and no additional complaints, except as documented ENT Ears, Nose, Mouth, and Throat: Reports system reviewed and no additional complaints, except as documented Cardiovascular Cardiovascular: Reports system reviewed and no additional complaints, except as documented, Reports as per HPI and Reports edema Respiratory Respiratory: Reports system reviewed and no additional complaints, except as documented Musculoskeletal Musculoskeletal: Reports system reviewed and no additional complaints, except as documented Integumentary/Breasts Skin/Breast: Reports system reviewed and no additional complaints, except as documented, Reports as per HPI and Reports redness Neurologic Neurologic: Reports system reviewed and no additional complaints, except as documented Endocrine Endocrine: Reports system reviewed and no additional complaints, except as documented Hematologic/Lymphatic Henatologic/Lymphatic: Reports system reviewed and no additional complaints, except as documented
--- NOTE | 2023-01-14 17:33 | XR_ITS ---
PROCEDURE INFORMATION: Exam: XR Left Ankle Exam date and time: 01/14/2023 5:51 PM Age: 32 years old Clinical indication: Pain; Ankle; Right; Additional info: Pain and swelling TECHNIQUE: Imaging protocol: Radiologic exam of the left ankle. Views: 3 or more views. COMPARISON: CR XR TIBIA FIBULA LT 2V 10/12/2022 6:36 PM FINDINGS: Bones/joints: No acute fracture or dislocation. Tiny plantar and Achilles calcaneal spurs, and tiny spur of the tip of the medial malleolus. Minimal ankle joint effusion visible.There are no lytic skeletal lesions seen. Soft tissues: Mild soft tissue swelling. No radiopaque foreign bodies seen. IMPRESSION: 1. No acute fracture or dislocation. 2. Soft tissue swelling, minimal ankle joint effusion. 3. Multiple small degenerative spurs as detailed above. Note: Clinical history provided on PACS is right ankle pain. Images ordered and performed are of the left ankle. Suspect this is inaccurate clinical data on PACS, correlate clinically to be sure the side of clinical concern was imaged.
== END 2023-01-14 18:14 | disposition home or self-care (01) ==
PROVIDERS: Emergency Provider Nurse Practitioner Family
DX: F17.210 Nicotine dependence, cigarettes, uncomplicated; R60.0 Localized edema; L03.116 Cellulitis of left lower limb
CPT/HCPCS: 73610; 99212; 99214; G0463

== ENCOUNTER → 2023-01-15 11:25 | Outpatient (CLI) | payer BC, SELFPAY ==
--- NOTE | 2023-01-15 | CA_ITS ---
FINAL REPORT TECHNIQUE: Compression cuello scale and Doppler evaluation CLINICAL HISTORY: smoker. Patient states his left leg began tingling 01/12/23. He denies trauma. States it began hurting and swelling 01/14/23. COMPARISON: None FINDINGS: Femoral and popliteal veins show normal compressibility and flow. Visualized portion of the calf veins are patent by Doppler exam. IMPRESSION: No evidence of left lower extremity deep venous thrombosis Reviewed, Interpreted and Dictated by Maynor Carrillo MD Transcribed by Lona Peck Authenticated and . [facility]
== END ==
PROVIDERS: Visit Provider Nurse Practitioner Family
DX: R09.89 Other specified symptoms and signs involving the circulatory and respiratory systems (principal); R60.9 Edema, unspecified
CPT/HCPCS: 93971

== ENCOUNTER 2023-01-19 14:56 | Emergency (ER) | payer BC, SELFPAY ==
[2023-01-19 15:01] VITALS: PULSE 88; O2SAT 98
[2023-01-19 15:07] VITALS: BP 133/92; PULSE 86; RESP 16; TEMP 37; O2SAT 99; BMI 28.8
--- NOTE | 2023-01-19 15:33 | HMH.EDGENADL ---
Discharge Plan Disposition Patient Disposition: Home, Self-Care Prescriptions Prescriptions: New sulfamethoxazole-trimethoprim [Bactrim DS] 800-160 mg tablet 1 tab PO Q12H 5 Days Qty: 10 0RF No Action cephalexin [cephalexin] 500 mg tablet 500 mg PO BID 7 Days Qty: 14 0RF Referrals Follow up/Referrals: Provider,Referral, [Primary Care Provider] - See instructions Clinical Impressions Clinical Impression: Cellulitis of left leg Discharge ED Provider: Arsenio Childs General Adult HPI General Chief complaint: Extremity Injury, Lower Stated complaint: left leg is swollen Time Seen by Provider: 01/19/23 15:02 Mode of Arrival: Ambulatory Source of Information: Patient Limitations: No Limitations Description of Symptoms (Recalled from ER Triage Doc. by RN): 32 yo M presents to ED with c/o left lower leg swelling and pain. pt reports he began a [employer] job approx 2 months ago, and pt walks about 13 miles a day. pt states pain, swelling, warmth at site. pt was seen in [facility] 01/14, ordered outpt scan (01/15), with negative reports. pt treated with keflex for cellulitis. pt here with c/o continued pain. History of Present Illness HPI narrative: This is a 32-year-old male who is otherwise healthy presenting with swelling of his left [place]. Patient states that he was seen a couple days prior to arrival in the urgent care. Walks 10 to 13 miles a day. Patient states that he was diagnosed with cellulitis after x-ray and ultrasound of his left lower extremity demonstrated no DVT or fracture. Continue to have worsening swelling today, so patient presents for further evaluation. No fevers, chills, systemic symptoms, or any other concerns. Bearing weight without issue Related Data Previous Rx's Medication Instructions Recorded cephalexin 500 mg tablet 500 mg PO BID 7 days #14 tabs 01/14/23 sulfamethoxazole 800 1 tab PO Q12H 5 days #10 tabs 01/19/23 mg-trimethoprim 160 mg tablet (Bactrim DS) Allergies Allergy/AdvReac Type Severity Reaction Status Date / Time Penicillins [PENICILLINS] Allergy Unknown SWELLING Verified 07/04/22 13:43 THROAT PFSH PFS Disclaimer: The information contained in this section may have been updated after the patient was seen, as this information can be updated by other users. 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) Smoking Status: Current every day smoker tobacco type: cigarettes packs per day: 1 second hand exposure: No alcohol intake: never current occupational status: other Travel in the last 8 weeks: None household members: significant other housing: house ROS Obtained: Yes All systems reviewed & no additional complaints except as documented Physical Exam General General appearance: alert, in no apparent distress and other ( ) Head Head exam: atraumatic and normocephalic Eye Eye exam: Present normal appearance, PERRL and EOMI ENT ENT exam: Present mucous membranes moist Neck Neck exam: Present normal inspection, full ROM and trachea midline Respiratory Respiratory exam: Absent respiratory distress, wheezes, stridor, accessory muscle use or prolonged expiratory phase Cardiovascular Cardiovascular exam: Present regular rate and normal rhythm Abdominal Exam Abdominal exam: Present soft; Absent distention, tenderness, guarding, rebound, rigidity or normal bowel sounds Extremities Exam Extremities exam: Present other (Tenderness, erythema distal aspect of left lower extremity with associated induration concerning for cellulitis. No evidence of fluctuance.); Absent edema Neurological Exam Neurological exam: Present alert, oriented X3, CN II-XII intact and normal gait; Absent motor sensory deficit Skin Skin exam: Present warm, dry,
[2023-01-19 15:50] VITALS: BP 133/92; PULSE 86; RESP 16; TEMP 37
== END 2023-01-19 15:52 | disposition home or self-care (01) ==
PROVIDERS: Emergency Provider Emergency Medicine
DX: L03.116 Cellulitis of left lower limb (principal); G43.909 Migraine, unspecified, not intractable, without status migrainosus; F17.210 Nicotine dependence, cigarettes, uncomplicated
CPT/HCPCS: 99283

== ENCOUNTER 2023-03-19 15:50 | Emergency (ER) | payer SELFPAY ==
[2023-03-19 16:30] VITALS: BP 125/79; PULSE 93; RESP 18; TEMP 38; O2SAT 98; BMI 28.2
--- NOTE | 2023-03-19 17:16 | EXP.UTC ---
Discharge Plan Disposition Patient Disposition: Home, Self-Care Condition: Good Prescriptions Prescriptions: New azithromycin 250 mg tablet See Rx Instructions .ROUTE .COMPLEX Qty: 6 0RF Rx Instructions: For 250 mg dose pack: take 500 mg today (day 1), then 250 mg for 4 days (days 2-5) methylprednisolone [Medrol (Martin)] 4 mg tablets,dose pack See Rx Instructions .ROUTE .COMPLEX 6 Days Qty: 21 0RF Rx Instructions: 4 mg orally ;Medrol dose taper martin [id number] [Bromfed DM] 2-30-10 mg/5 mL syrup 10 ml PO Q6H PRN (Reason: cold symptoms) Qty: 200 0RF albuterol sulfate 90 mcg/actuation HFA aerosol inhaler 2 puff inhalation Q6H PRN (Reason: shortness of breath or wheezing) Qty: 8.5 0RF Referrals Follow up/Referrals: Provider,Referral, MD [Primary Care Provider] - See instructions Clinical Impressions Clinical Impression: Acute lower respiratory tract infection Instructions Patient Instructions: Acute Bronchitis Discharge ED Provider: Mackenzie Vazquez [facility] [place], [place] HPI General Stated complaint: fever,cough congestion Mode of Arrival: Ambulatory Source of Information: Patient Limitations: No Limitations Time Seen by Provider: 03/19/23 17:15 Description of Symptoms (Recalled from Triage Doc. by RN): fever, cough, runny nose, and congested HEENT Symptoms (Recalled from RN notes): Yes Resp Symptoms (Recalled from RN notes): No Skin Symptoms (Recalled from RN notes): No MS Symptoms (Recalled from RN notes): No Functional Status (Recalled from RN notes): n/a Related Data Previous Rx's Medication Instructions Recorded albuterol sulfate 90 mcg/actuation 2 puff inhalation Q6H PRN 03/19/23 aerosol inhaler shortness of breath or wheezing #8.5 grams azithromycin 250 mg tablet See Rx Instructions PO .COMPLEX #6 03/19/23 tabs ficgrdoepbrieyp-kfgykvljhhkarss-NF 10 ml PO Q6H PRN cold symptoms 03/19/23 2 mg-30 mg-10 mg/5 mL oral syrup #200 mL (Bromfed DM) methylprednisolone 4 mg tablets in See Rx Instructions .Route 03/19/23 a dose pack (Medrol (Martin)) .COMPLEX 6 days #21 tabs Allergies Allergy/AdvReac Type Severity Reaction Status Date / Time Penicillins [PENICILLINS] Allergy Unknown SWELLING Verified 03/19/23 17:04 THROAT Worker's Comp Is this a Worker's Comp case?: No [facility] Disclaimer: The information contained in this section may have been updated after the patient was seen, as this information can be updated by other users. 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) History of cholecystectomy Social History Smoking Status: Current every day smoker tobacco type: cigarettes packs per day: 1 second hand exposure: No alcohol intake: never current occupational status: other Travel in the last 8 weeks: None household members: significant other housing: house ROS Obtained: Yes All systems reviewed & no additional complaints except as documented Constitutional Constitutional: Reports system reviewed and no additional complaints, except as documented, Reports fatigue, Reports fever(s) and Reports malaise Eyes Eyes: Reports system reviewed and no additional complaints, except as documented ENT Ears, Nose, Mouth, and Throat: Reports system reviewed and no additional complaints, except as documented, Reports nasal discharge and Reports sinus pressure Cardiovascular Cardiovascular: Reports system reviewed and no additional complaints, except as documented Respiratory Respiratory: Reports system reviewed and no additional complaints, except as documented, Reports non-productive cough, Reports pain with cough and Reports wheezing Gastrointestinal Gastrointestingal: Reports system reviewed and no additional complaints, except as documented Genitourinary Male Genitourinary: Repor
[2023-03-19 17:24] LABS: UTC Influenza A Antigen Negative (Negative)
[2023-03-19 17:25] LABS: UTC Influenza B Antigen Negative (Negative)
[2023-03-19 17:50] VITALS: BP 125/79; PULSE 93; RESP 18; TEMP 37.6; O2SAT 98
== END 2023-03-19 17:50 | disposition home or self-care (01) ==
PROVIDERS: Emergency Provider Nurse Practitioner Family
DX: J22 Unspecified acute lower respiratory infection (principal); R50.9 Fever, unspecified; F17.210 Nicotine dependence, cigarettes, uncomplicated
CPT/HCPCS: 87635; 87804; 99212; 99214; G0463